=== PATIENT | male | born 1975 | race Caucasian/White ===

== ENCOUNTER → 2022-10-19 | Outpatient (CLI) | payer OTHER ==
[~2022-10-19] MED LIST: CATHETER FLUSH 10 ML SYR IV PRN; HOLD METFORMIN - RECEIVED CONTRAST 20 ML VIAL IV SCH; IOHEXOL 350 MG/ML 100 ML (OMNIPAQUE 350) VIAL IV ONE; NS 100 ML (IVPB) BAG IV ONE
--- NOTE | 2022-10-19 17:39 | Diagnostic Imaging Report ---
PROCEDURE: CT chest with contrast only. TECHNIQUE: Multiple contiguous axial images were obtained through the chest after administration of intravenous contrast. Auto Exposure Controls were utilized during the CT exam to meet ALARA standards for radiation dose reduction. INDICATION: Noncardiac chest pain. COMPARISON: None available. FINDINGS: No significant adenopathy within the chest. No aneurysmal dilatation of the thoracic aorta. The heart is within normal limits in size. No pericardial effusion. No pleural effusion. The trachea is patent. No pneumothorax. The lungs are clear. The partially visualized upper abdomen is unremarkable. No acute osseous abnormality. IMPRESSION: No acute abnormality. Dictated by: Dictated on workstation # [id number]
== END ==
LOC: RAD FS 14:24
PROVIDERS: ATTEND Nurse Practitioner Family
DX: R07.89 Other chest pain (principal)
CPT/HCPCS: 71260; Q9967